=== PATIENT | male | born 1950 | race Caucasian/White ===

== ENCOUNTER 2025-05-14 08:04 | Outpatient (CLI) | payer MEDICARE, BC, SELFPAY ==
--- NOTE | 2025-05-14 08:15 | CRLHL7_ITS ---
For Patients: As a result of the Century Cures Act, medical imaging exams and procedure reports are released immediately into your electronic medical record. You may view this report before your referring provider. If you have questions, please contact your health care provider. INDICATION: Malignant neoplasm of supraglottis TECHNIQUE: Modified barium swallow. Fluoroscopic time 37 seconds. COMPARISON: None FINDINGS/IMPRESSION: Anatomical structures are normal. Swallowing mechanism appears within normal limits. No episodes of penetration or aspiration. No significant findings. Dictated by Andrea Fallon MD @ 05/14/2025 9:43:34 AM (Electronically Signed)
== END 2025-05-14 08:05 | disposition home or self-care (01) ==
LOC: RAD 08:06
PROVIDERS: PCP Internal Medicine; Visit Provider Radiology Radiation Oncology
DX: C32.1 Malignant neoplasm of supraglottis (principal); R13.10 Dysphagia, unspecified; Z85.21 Personal history of malignant neoplasm of larynx
CPT/HCPCS: 74230; 92611